=== PATIENT | female | born 1965 | race Caucasian/White ===

== ENCOUNTER 2020-12-14 18:12 | Emergency (ER) | payer SELFPAY ==
[~2020-12-14 18:12] MED LIST: Iopamidol-370 76% 500 ML 1 ML ONE
[2020-12-14] MEDS ORDERED: Acetaminophen 500 MG TAB ONE (18:33)
[2020-12-14] MEDS ORDERED: cefOXitin Sodium/Dextrose 2 GM/50 ML BAG ONE (19:19)
[2020-12-14] MEDS ORDERED: Azithromycin 500 MG VIAL ONE (19:19)
[2020-12-14] MEDS ORDERED: cefTRIAXone\\ROCEPHIN 2 GM VIAL ONE (19:22)
== END 2020-12-14 23:40 | disposition home or self-care (01) ==
LOC: ERS 18:12
DX: J18.9 Pneumonia, unspecified organism (principal); N39.0 Urinary tract infection, site not specified
CPT/HCPCS: 71275; 80053; 81003; 81015; 83605; 84484; 85025; 87040; 87077; 87086; 87186; 93005; 94760; 96365; 96367; J0456; J0694; J0696; Q9967